=== PATIENT | female | born 1980 | race Caucasian/White ===

== ENCOUNTER 2019-02-06 08:00 | Outpatient (CLI) | payer BC ==
[2012-12-02 08:59] VITALS: BMI 31.2
[2019-02-06 10:15] LABS: BASOPHILS 0.2 % (0-2); EOSINOPHILS 3.8 % (0-7); HEMATOCRIT 36.8 % (36.0-48.0); HEMOGLOBIN 12.5 g/dL (12-16); IMMATURE GRANULOCYTES 0.2 % (0-5); LYMPHOCYTES 27.7 % (15-50); MCH 29.3 pg (26.0-34.0); MCV 86.4 fL (80.0-100.0); MEAN PLATELET VOLUME 9.4 fL (7.4-10.4); MONOCYTES 8.8 % (2-11); NEUTROPHILS 59.3 % (40-80); PLATELET COUNT 234 10x3/uL (130-400); RBC 4.26 10x6/uL (4.00-5.40); RDW 13.6 % (11.5-14.5); WBC 9.1 10x3/uL (4.8-10.8)
[2019-02-06 10:25] LABS: CALC OSMOLALITY 279 mosm/kg (275-300); CALCIUM 9.1 mg/dL (8.5-10.1); CARBON DIOXIDE 28.6 mmol/L (21.0-32.0); CHLORIDE - SERUM 105 mmol/L (98-107); CREATININE - SERUM 0.9 mg/dL (0.6-1.3); GLUCOSE 98 mg/dL (74-106); POTASSIUM - SERUM 4.4 mmol/L (3.5-5.1); SODIUM 141 mmol/L (136-145); UREA NITROGEN 10 mg/dL (7-18); eGFR NON AFRICAN AMERICAN 75 mL/min (90-120)
[2019-02-23 18:19] VITALS: BMI 35.4
== END 2019-02-06 08:01 | disposition home or self-care (01) ==
LOC: D.OPS 08:00 → D.PAN 02-09 07:30 → EDSTATUS 02-11 07:30 → D.PAN 02-11 07:30 → D.OPS 02-11 07:30
PROVIDERS: ATTEND Obstetrics & Gynecology
DX: N93.8 Other specified abnormal uterine and vaginal bleeding (principal); Z53.9 Procedure and treatment not carried out, unspecified reason

== ENCOUNTER 2019-02-23 07:00 | Day surgery (SDC) | payer BC ==
[2019-02-20 10:36] LABS: BASOPHILS 0.3 % (0-2); EOSINOPHILS 3.4 % (0-7); HEMATOCRIT 35.8 % (36.0-48.0); HEMOGLOBIN 12.1 g/dL (12-16); IMMATURE GRANULOCYTES 0.1 % (0-5); LYMPHOCYTES 30.7 % (15-50); MCHC 33.8 g/dL (31.0-37.0); MCV 85.9 fL (80.0-100.0); MEAN PLATELET VOLUME 9.1 fL (7.4-10.4); MONOCYTES 8.3 % (2-11); NEUTROPHILS 57.2 % (40-80); PLATELET COUNT 217 10x3/uL (130-400); RBC 4.17 10x6/uL (4.00-5.40); RDW 13.5 % (11.5-14.5); WBC 7.9 10x3/uL (4.8-10.8)
[2019-02-20 10:53] LABS: CALC OSMOLALITY 278 mosm/kg (275-300); CALCIUM 9.2 mg/dL (8.5-10.1); CARBON DIOXIDE 26.9 mmol/L (21.0-32.0); CHLORIDE - SERUM 104 mmol/L (98-107); CREATININE - SERUM 0.7 mg/dL (0.6-1.3); GLUCOSE 98 mg/dL (74-106); POTASSIUM - SERUM 4.4 mmol/L (3.5-5.1); SODIUM 140 mmol/L (136-145); UREA NITROGEN 13 mg/dL (7-18); eGFR NON AFRICAN AMERICAN > 90 mL/min (90-120)
[~2019-02-23] VITALS: Ht 154.9 cm; Wt 85.0 kg
[2019-02-23 09:18] VITALS: BP 110/75; BMI 35.4
[2019-02-23 09:26] LABS: HCG URINE NEGATIVE (NEGATIVE)
--- NOTE | 2019-02-23 13:45 | NUR ---
Received from recovery room by stretcher, she is awake and alert and able to move self over to room bed without assistance. IV to left hand infusing LR per orders, saline lock to right hand, patent, no signs of redness. Abdomen soft to touch with 3 lab incision present that are clean and dry. pate cath to bedside drain with 75ml clear urine noted to canister. SCDs bilat and connected to pump. bowel sounds active x 4 and she denies nausea when asked. large cup of ice water per request. Side rails up x 2 with family present.
[2019-02-23 13:46] VITALS: BP 100/70
--- NOTE | 2019-02-23 14:15 | NUR ---
PT AWAKE AND ALERT WITHOUT COMPLAINT OF PAIN, LARGE ICE WATER PER PT REQUEST ALONG WITH JELLO. REASSURED THAT SHE IS ABLE TO EAT, DENIES NEEDING DIETARY CALLED STATES SHE IS GOING TO GET HER TO BRING HER SOMETHING. OSTO WITH 50ML CLEAR URINE NOTED. CALL LIGHT IN REACH WITH SIDE RAILS UP X 2.
--- NOTE | 2019-02-23 16:00 | NUR ---
PT ATE ABOUT 50% OF FOOD BROUGHT IN BY SPOUSE AND CONTINUE TO DENY NAUSEA. IV REMOVED FROM LEFT HAND WITH CATH INTACT. PT UNDERSTANDS THAT SALINE LOCK FROM RIGHT HAND WILL BE REMOVED AFTER SHE IS ABLE TO VOID. SOTO CATH REMOVED INTACT WITH TOTAL OUTPUT OF 600ML NOTED. PT DENIES FEELING THAT SHE COULD VOID AT THIS TIME AND WILL CALL FOR NURSE BEFORE GETTING UP TO BATHROOM.
--- NOTE | 2019-02-23 16:30 | NUR ---
CALLED TO ROOM. PT ABLE TO SIT UP ON SIDE OF BED WITHOUT COMPLAINT OF NAUSEA OR DIZZINESS. AMB TO BATHROOM AND ABLE TO VOID 200ML WITHOUT COMPLAINT. CHALO CARE PER SELF, BACK TO BED AND POSITION SELF FOR COMFORT. ICE PACK REAPPLIED TO ABD. RATES PAIN AT 2/10 SIDE RAILS UP X 2 CALL LIGHT IN REACH.
[2019-02-23] MEDS ORDERED: PERCOCET 7.5/321 TAB PO (17:27)
[2019-02-23] MEDS ORDERED: NEURONTIN 300300 MG PO (17:28)
--- NOTE | 2019-02-23 17:30 | NUR ---
PT CALLS OUT TO NOTIFY THAT SHE HAS VOIDED AGAIN. THIS RN TO ROOM. PT VOIDED 500ML. STATES SHE IS READY TO GO HOME IF POSSIBLE. SALINE LOCK REMOVED INTACT FROM RIGHT HAND. PT GOING TO GET DRESSED. SPOUSE AND PT MOTHER AT BEDSIDE.
[2019-02-23] MEDS ORDERED: MOBIC7.5 MG PO (17:31)
--- NOTE | 2019-02-23 18:00 | NUR ---
PAIN MED GIVEN CHARTED ON EMAR, VERBAL AND WRITTEN D/C INSTRUCTIONS GONE OVER WITH WRITTEN SCRIPTS FOR PERCOCET 7.5/325MG, MOBIC 15MG AND NEUROTIN 300MG WITH INFO ON EACH. DENIES ANY QUESITONS OR CONCERNS. TAKEN OUT TO CAR BY WHEELCHAIR HOME WITH FAMILY.
[2019-02-23 18:19] VITALS: Ht 154.9 cm; Wt 85.0 kg
== END 2019-02-23 18:15 | disposition home or self-care (01) ==
LOC: D.OPS 07:00 → D.PAN 08:50 → D.OPS 08:50 → D.PAN 09:00 → D.LD 13:24 → D.OPS 18:15
PROVIDERS: ATTEND Obstetrics & Gynecology
DX: K66.0 Peritoneal adhesions (postprocedural) (postinfection) (principal); D39.8 Neoplasm of uncertain behavior of other specified female genital organs; N94.5 Secondary dysmenorrhea; N92.4 Excessive bleeding in the premenopausal period